=== PATIENT | male | born 1945 | race Two or more races ===

== ENCOUNTER → 2019-12-10 06:00 | Outpatient (CLI) | payer OTHER ==
[~2019-12-10] VITALS: Ht 167.6 cm; Wt 81.6 kg
== END | disposition home or self-care (01) ==
LOC: LAB 06:00 → SURH 12-18 07:00 → SURG 12-18 07:00 → EDSTATUS 12-18 07:00
DX: K43.2 Incisional hernia without obstruction or gangrene (principal); R10.9 Unspecified abdominal pain; I10 Essential (primary) hypertension

== ENCOUNTER → 2020-02-05 | Day surgery (SDC) | payer OTHER ==
[~2020-02-05] MED LIST: ASPIR 8181 MG PO; MIRALAX17 GM PO; NAPROXEN500 MG PO; NEURONTIN300 MG PO; TYLENOL ARTHRI650 MG PO; ULTRAM50 MG PO
== END | disposition home or self-care (01) ==
LOC: CIR.AMB 05:30
DX: K43.2 Incisional hernia without obstruction or gangrene (principal); K40.90 Unilateral inguinal hernia, without obstruction or gangrene, not specified as recurrent; D17.6 Benign lipomatous neoplasm of spermatic cord